=== PATIENT | male | born 1990 | race Caucasian/White ===

== ENCOUNTER 2021-07-24 14:43 | Emergency (ER) | payer BC ==
[2021-07-24 16:06] LABS: HEMOGLOBIN 13.5 gm/dl (14.0-17.5); RED BLOOD COUNT 4.28 M/UL (4.20-5.50); WHITE BLOOD COUNT 13.2 K/UL (4.5-11.0)
[2021-07-24 16:26] LABS: BUN/CREATININE RATIO 16 (0-10)
== END 2021-07-25 03:48 | disposition home or self-care (01) ==
LOC: ER1 14:43
PROVIDERS: Physician Assistant
DX: K35.30 Acute appendicitis with localized peritonitis, without perforation or gangrene (principal); K80.50 Calculus of bile duct without cholangitis or cholecystitis without obstruction; F17.290 Nicotine dependence, other tobacco product, uncomplicated; Z20.822 Contact with and (suspected) exposure to COVID-19
CPT/HCPCS: 80053; 81001; 85025; 87086; 96374; 96375; 96376; 99285; J1885; J2270; J2405; J7030; Q9967; U0002